=== PATIENT | female | born 1980 | race African-American/Black ===

== ENCOUNTER 2024-08-06 19:46 | Emergency (ER) | payer MEDICAID ==
[~2024-08-06] VITALS: Ht 170.2 cm; Wt 82.0 kg
[2024-08-06 19:52] VITALS: O2SAT 100
[2024-08-06 20:55] LABS: BASOPHILS % 0.9 % (0.0-2.0); DIFFERENTIAL COMMENT 1; EOSINOPHILS % 0.1 % (0.0-5.0); HEMATOCRIT. 33.8 % (36.0-48.0); HEMOGLOBIN. 10.3 g/dL (12.0-16.0); LYMPHOCYTES % 20.6 % (20.0-50.0); MEAN CORPUSCULAR HEMOGLOBIN 21.4 pg (28.0-32.0); MEAN CORPUSCULAR HGB CONC 30.6 g/dL (31.0-37.0); MEAN CORPUSCULAR VOLUME 69.7 fL (81.0-99.0); MEAN PLATELET VOLUME 6.5 fl (7.4-10.4); MONOCYTES % 2.6 % (2.0-8.0); NEUTROPHILS % 75.8 % (40.0-76.0); PLATELET 454 x1000/uL (130-400); RED BLOOD CELL COUNT 4.85 mill/uL (4.2-5.4); RED CELL DISTRIBUTION WIDTH 19.1 % (11.6-14.6); WHITE BLOOD COUNT 6.7 x1000/uL (4.5-11.0)
[2024-08-06 20:56] LABS: ADD RBC MORPHOLOGY YES
[2024-08-06 20:57] LABS: CLARITY URINE CLEAR (CLEAR); COLOR URINE YELLOW (YELLOW); GLUCOSE URINE NEGATIVE (NEGATIVE); KETONES URINE NEGATIVE (NEGATIVE); LEUKOCYTE ESTERASE URINE NEGATIVE (NEGATIVE); NITRITE URINE NEGATIVE (NEGATIVE); OCCULT BLOOD URINE NEGATIVE (NEGATIVE); PH URINE 8.5 (4.5-8.0); PROTEIN URINE 1+ (NEGATIVE); SPECIFIC GRAVITY URINE 1.018 (1.005-1.030)
[2024-08-06 21:00] LABS: CHLORIDE 100 mEq/L (98-107); POTASSIUM 3.5 mEq/L (3.5-5.1); SODIUM 137 mEq/L (136-145)
[2024-08-06 21:01] LABS: CALCIUM 10.3 mg/dL (8.7-10.4); CARBON DIOXIDE 25 mEq/L (21-32)
[2024-08-06 21:05] LABS: RBC URINE 0-2 /hpf (0-2); SQUAMOUS EPITHELIAL CELL URINE FEW /lpf (RARE/1+); WBC URINE 0-2 /hpf (0-2)
[2024-08-06 21:06] LABS: CREATININE 0.8 mg/dL (0.6-1.0); GLUCOSE 103 mg/dL (70-105); UREA NITROGEN BLOOD 6 mg/dL (9-23)
[2024-08-06 21:06] LABS: BACTERIA URINE 1+
[2024-08-06 21:08] LABS: ALANINE AMINOTRANSFERASE 26 IU/L (10-49); ASPARTATE AMINOTRANSFERASE 34 IU/L (<34); BILIRUBIN DIRECT 0.1 mg/dL (<=3.0)
[2024-08-06] MEDS: SODIUM CHLORIDE 0.9% 1,000 ML IV ONE (21:08)
[2024-08-06 21:09] LABS: BILIRUBIN TOTAL 0.5 mg/dL (0.1-1.0); PROTEIN TOTAL 8.5 g/dL (6.0-8.3)
[2024-08-06 21:12] LABS: HYPOCHROMASIA 2+; MICROCYTOSIS 3+; PLATELET ESTIMATE INCREASED
[2024-08-06 21:13] LABS: ANISOCYTOSIS 1+; OVALOCYTES 1+
[2024-08-06] MEDS: ONDANSETRON HCL 4MG/2ML INJ IV STA (22:06)
[2024-08-06] MEDS: MORPHINE SULFATE 4 MG/ML INJ (FOR IV/IM USE) IV STA (22:12)
[2024-08-06 23:04] VITALS: TEMP 36.8
[2024-08-06] MEDS ORDERED: FAMO-135 MT (23:31)
[2024-08-07 00:53] VITALS: BP 143/72; PULSE 80; RESP 20; O2SAT 98
== END 2024-08-07 00:59 | disposition home or self-care (01) ==
LOC: ER 19:46
DX: R10.13 Epigastric pain (principal); R11.2 Nausea with vomiting, unspecified; Z88.1 Allergy status to other antibiotic agents; Z88.2 Allergy status to sulfonamides; Z88.5 Allergy status to narcotic agent; Z79.899 Other long term (current) drug therapy
CPT/HCPCS: 80076; 80048; 81003; 81025; 83690; 85025; 36415; 74176; 96374; 96375; 99285; J2405; J2270; J7030; Z7610 ×2